=== PATIENT | male | born 1960 | race Caucasian/White ===

== ENCOUNTER → 2017-01-31 | Outpatient (CLI) | payer BC ==
[2014-06-24 20:34] VITALS: BP 155/99
--- NOTE | 2017-01-31 16:16 | MG ---
HISTORY: Focal abnormality of the left breast Bilateral diagnostic mammogram Comparison: None available FINDINGS: Bilateral CC and MLO projections of the right and left breast were obtained. Normal male fibrogland ular tissue is seen to be present. Prominence of the left nipple is noted to be present a focal nod ular density is observed in the superior aspect of the left breast in the MLO projection. No lesion can be identified on the CC projection. Ultrasound will be performed in the region of palpable frantz rn. No skin thickening or nipple retraction is appreciated. No pathological lymphadenopathy can b e identified. IMPRESSION: Focal nodular density within the superior aspect of the left breast not well seen on th e CC projection. Ultrasound will be performed in the region of palpable concern. Left breast ultrasound: Multiple grayscale and color flow Doppler images of left breast were obtained in the region of palpa ble concern. In the 1 o'clock position the subdermal hyperechoic lesion is observed measuring 14 mm x 7 mm by 7 mm. Lesions approximately 8 cm from the nipple. The lesion does appear to be wider than tall. Findings are reassuring for benignity in given the subdermal location likely reflect a sebaceo us cyst. Continued clinical followup is recommended. Impression: Focal hyperechoic lesion in the 1 o'clock position in a subdermal location most likely reflecting a sebaceous cyst or epidermal inclusion cyst. Continued clinical followup is recommended. If continued clinical concern is noted repeat ultrasound for target is evaluation is recommended. ACR CATEGORY: 2 - benign findings. Continued clinical followup and repeat ultrasound if continued clinical concern is observed Diagnostic CAD was utilized and reviewed. * 0 (ZERO) - ASSESSMENT INCOMPLETE; ADDITIONAL IMAGING IS NEEDED. * / (ONE) - NEGATIVE. * 2/II (TWO) - BENIGN FINDINGS. * 3/III (THREE) - PROBABLY BENIGN FINDING; SHORT INTERVAL FOLLOW-UP SUGGESTED. * 4/IV (FOUR) - SUSPICIOUS ABNORMALITY; BIOPSY SHOULD BE CONSIDERED. * 5/V - HIGHLY SUSPICIOUS OF MALIGNANCY; BIOPSY SHOULD BE PERFORMED. A NEGATIVE X-RAY REPORT SHOULD NOT DELAY BIOPSY IF A DOMINANT OR CLINICALLY SUSPICIOUS MASS IS PRESENT; 4 TO 8 PERCENT OF CANCERS ARE NOT IDENTIFIED BY X-RAY. A NEG ATIVE REPORT MAY REINFORCE THE CLINICAL IMPRESSION. ADENOSIS AND DENSE BREASTS MAY OBSCURE AN UNDER LYING NEOPLASM. Reported By:
--- NOTE | 2017-02-01 09:41 | US ---
HISTORY: Left groin mass Study: Ultrasound left groin Comparison: None Technique: Multiple grayscale sonographic images were obtained. Findings: Sonographic evaluation was focused to the left groin where there is a palpable abnormality. Images d emonstrated a 1.23 x 5.5 centimeter architecturally normal lymph node and a 1.25 x 0.67 centimeter a rchitecturally normal lymph node. There is no evidence for vascular abnormality. IMPRESSION: Architecturally normal left groin lymph nodes, not significantly enlarged Reported By:
== END | disposition home or self-care (01) ==
LOC: RAD 14:05
PROVIDERS: ATTEND Nurse Practitioner Family
DX: N63 Unspecified lump in breast (principal); R19.09 Other intra-abdominal and pelvic swelling, mass and lump
CPT/HCPCS: 76642; 76882; 77066

== ENCOUNTER → 2017-02-08 | Outpatient (CLI) | payer SELFPAY ==
[2014-06-24 20:34] VITALS: BP 155/99
--- NOTE | 2017-02-08 16:29 | CT ---
HISTORY: Screening, hypertension. Cardiac CTA with calcium scoring Technique: Multiple axial images of the chest were obtained on a [address] from the aortic arch to the base of the heart with retrospective cardiac gating. Noncontrast evaluation of the heart was performed for calcium scoring with prospective gating. 3D reconstructions and vessel analysis were performed on a vital imaging workstation. Dose reduction techniques including Automat ed Exposure Control (AEC) and adjustment of mA and kV were utilized. Findings: A total calcium score of 295 is observed. The score results in moderate atherosclerotic plaques wit h a high likelihood of coronary events given the age and sex matched cohort analysis. Evaluation of the coronary arterial system demonstrates significant disease of the left circumflex a nd LAD. No significant disease of the right coronary or left main coronary arteries can be identifi ed. Extracardiac findings: No pathologically enlarged lymphadenopathy can be observed. The aortic arch is unremarkable in its appearance with normal vascular configuration. No significant pericardial effusion can be identifie d. Moderate paraseptal and centrilobular emphysematous changes. Remaining lungs are otherwise unrem arkable. No lytic or blastic lesions can be identified within the visualized bony thorax. The visua lized portions of the abdomen demonstrate normal perfusion patterns of the spleen and liver. IMPRESSION: 1. Total calcium score of 295 that results in moderate atherosclerotic plaques with a high likelihoo d of coronary artery events. 2. Moderate paraseptal and centrilobular emphysematous changes of the lungs. Recommend dedicated non contrast CT of the chest for lung screening. Reported By:
== END ==
LOC: RAD 10:43
PROVIDERS: ATTEND Nurse Practitioner Family
DX: Z13.6 Encounter for screening for cardiovascular disorders (principal)

== ENCOUNTER → 2017-03-15 | Outpatient (CLI) | payer BC ==
[2014-06-24 20:34] VITALS: BP 155/99
[~2017-03-15] MED LIST: NS 100 ML IV 100 ML IV ONE
[2017-03-15 09:43] LABS: ALANINE AMINOTRANSFERASE 32 Units/L (12-78); ALBUMIN 3.3 g/dL (3.4-5.0); ALKALINE PHOSPHATASE 61 Units/L (46-116); ASPARTATE AMINO TRANSFERASE 23 Units/L (15-37); BLOOD UREA NITROGEN 13 mg/dL (7-18); CALCIUM 8.3 mg/dL (8.5-10.1); CARBON DIOXIDE 24.8 mmol/L (21-32); CHLORIDE 108 mmol/L (98-107); COR CA(FOR HYPOALB) 8.9 mg/dL (8.5-10.1); CREATININE 0.93 mg/dL (0.70-1.30); GLUCOSE 104 mg/dL (65-99); SODIUM 141 mmol/L (136-145); TOTAL PROTEIN 6.6 g/dL (6.4-8.2); eGFR BLACK RACES > 60 (>60); eGFR NON BLACK RACES > 60 (>60)
--- NOTE | 2017-03-15 10:56 | CT ---
History: Shortness of breath Study: CT chest with IV contrast. Sagittal and coronal reformations were provided. Comparison: None Findings: There is mild to moderate hyperinflation of the lungs in there is centrilobular emphysema with small blebs in the upper lobes primarily, medially. There is no pulmonary nodule or atelectasis or lung consolidation . There are prominent probably reactive lymph nodes in the aortopulmonary win nura and middle mediastinum. The aorta is unremarkable. There is mild fatty infiltration of the liver . Impression: Emphysema, no acute disease. Mild probable reactive mediastinal adenopathy Reported By:
== END ==
LOC: RAD 08:55
PROVIDERS: ATTEND Nurse Practitioner Family
DX: J43.2 Centrilobular emphysema (principal); R06.02 Shortness of breath; R22.2 Localized swelling, mass and lump, trunk
CPT/HCPCS: 36415; 71260; 80053; A4222